=== PATIENT | male | born 2000 | race Two or more races ===

== ENCOUNTER 2018-06-21 17:20 | Emergency (ER) | payer SELFPAY ==
[~2018-06-21] VITALS: Ht 193 cm; Wt 86.2 kg
[2018-06-21 17:39] VITALS: BP 122/76
[2018-06-21] MEDS ORDERED: cefTRIAXone SOD 1,000 MG VL IM ONE (20:00)
[2018-06-21] MEDS ORDERED: methylPREDNISolone SOD SUCC 125 MG/2 ML VL IM ONE (20:00)
[2018-06-21] MEDS ORDERED: ACETAMINOPHEN/CODEINE#3 (300/30mg) TAB PO ONE (20:00)
[2018-06-21] MEDS ORDERED: LIDOCAINE W/ EPINEPHRINE 2% INJ 20ML VIAL IJ ONE (20:15)
== END 2018-06-21 21:20 | disposition home or self-care (01) ==
LOC: ER 17:25
DX: L73.2 Hidradenitis suppurativa (principal)
CPT/HCPCS: 10060; 96372; 99283; J0696; J2930

== ENCOUNTER 2018-06-22 18:32 | Emergency (ER) | payer SELFPAY ==
[~2018-06-22] VITALS: Ht 193 cm; Wt 86.2 kg
[2018-06-22 18:41] VITALS: BP 133/65
[2018-06-22] MEDS ORDERED: cefTRIAXone SOD 1,000 MG VL IM ONE (20:30)
[2018-06-22] MEDS ORDERED: HYDROcodone-ACET 5/325MG TAB PO ONE (20:45)
== END 2018-06-22 21:19 | disposition home or self-care (01) ==
LOC: ER 18:37
DX: L73.2 Hidradenitis suppurativa (principal)
CPT/HCPCS: 96372; 99283; C1887; J0696